=== PATIENT | female | born 1945 | race Caucasian/White ===

== ENCOUNTER 2020-09-17 10:58 | Observation (INO) | payer MEDICARE, OTHER ==
[~2020-09-17] VITALS: Ht 170.2 cm; Wt 105.6 kg
[2020-09-17] MEDS ORDERED: ASPIRIN 81 MG CHEW (CHILDREN'S ASA) PO ONE (11:15)
[2020-09-17 11:22] LABS: BASOPHILS # (AUTO) 0.1 10^3/uL (0.0-0.1); BASOPHILS % (AUTO) 1 % (0-10); EOSINOPHILS # (AUTO) 0.2 10^3/uL (0.0-0.3); EOSINOPHILS % (AUTO) 1 % (0-10); HEMATOCRIT 41 % (35-52); HEMOGLOBIN 13.3 g/dL (11.5-16.0); LYMPHOCYTES # (AUTO) 1.5 10^3/uL (1.0-4.0); LYMPHOCYTES % (AUTO) 11 % (12-44); MEAN CORPUSCULAR HEMOGLOBIN 30 pg (25-34); MEAN CORPUSCULAR HGB CONC 32 g/dL (32-36); MEAN CORPUSCULAR VOLUME 94 fL (80-99); MEAN PLATELET VOLUME 11.2 fL (9.0-12.2); MONOCYTES # (AUTO) 0.5 10^3/uL (0.0-1.0); MONOCYTES % (AUTO) 4 % (0-12); NEUTROPHILS % (AUTO) 83 % (42-75); PLATELET COUNT 230 10^3/uL (130-400); WHITE BLOOD COUNT 13.3 10^3/uL (4.3-11.0)
--- NOTE | 2020-09-17 11:25 | ED Respiratory ---
General Chief Complaint: Respiratory Problems Stated Complaint: CP,SOB Source: patient Exam Limitations: no limitations History of Present Illness Date Seen by Provider: September 17, 2020 Time Seen by Provider: 11:00 Initial Comments Patient presents ER by private conveyance from home with chief complaint shortness of air no chest pain. He has a history of heart failure with EF of 20% known to Dr. De Jesus and Dr. Pat for primary care. She denies history of COPD. She is oxygen dependent typically at 4 L by nasal cannula. She is not having any fevers chills cough. She does not weigh herself daily. She does not smoke. No known history of coronary disease. She had a heart catheterization a few years ago which was unremarkable she says. Allergies and Home Medications Allergies Coded Allergies: No Known Drug Allergies (Unverified , 09/17/20) Patient Home Medication List Home Medication List Reviewed: Yes Review of Systems Review of Systems Constitutional: No chills, No diaphoresis EENTM: No ear discharge, No ear pain Respiratory: No cough; short of breath (Worse with exertion) Cardiovascular: No chest pain, No Hx of Intervention, No palpitations, No syncope, No vascular heart diseas Gastrointestinal: No abdominal pain, No nausea, No vomiting Genitourinary: No discharge, No dysuria Musculoskeletal: No back pain, No joint pain All Other Systems Reviewed Negative Unless Noted: Yes Past Jepjabb-Stfjmm-Lbmwha Hx Patient Social History Alcohol Use: Denies Use Smoking Status: Never a Smoker 2nd Hand Smoke Exposure: No Recent Hopitalizations: No Past Medical History Surgeries: Yes (HEART CATH) Gallbladder, Joint Replacement Respiratory: No Cardiac: Yes (CHF, LOW EJECTION FRACTION) Neurological: No Genitourinary: No Gastrointestinal: No Musculoskeletal: No Endocrine: Yes Diabetes, Non-Insulin dep HEENT: No Cancer: No Psychosocial: No Integumentary: No Blood Disorders: No Physical Exam Vital Signs - First Documented 09/17/20 09/17/20 11:05 11:14 Temp 35.9 Pulse 94 Resp 24 B/P (MAP) 176/114 (134) Pulse Ox 93 O2 Delivery Non Rebreather O2 Flow Rate 8.00 Capillary Refill : Height: '" Weight: lbs. oz. kg; BMI Method: General Appearance: moderate distress, obese Eyes: Bilateral Eye Normal Inspection, Bilateral Eye PERRL, Bilateral Eye EOMI HEENT: PERRL/EOMI, normal ENT inspection, pharynx normal Neck: full range of motion, supple, normal inspection Respiratory: lungs clear, respiratory distress, decreased breath sounds, accessory muscle use, other (Breathless, struggling to get more than 1-2 words out and reply) Cardiovascular: normal peripheral pulses, regular rate, rhythm Neurologic/Psychiatric: alert, oriented x 3 Skin: normal color, warm/dry Progress/Results/Core Measures Suspected Sepsis SIRS Temperature: Pulse: Respiratory Rate: Laboratory Tests 09/17/20 11:08: White Blood Count 13.3H Blood Pressure / Mean: Laboratory Tests 09/17/20 11:08: Creatinine 0.72, Platelet Count 230, Total Bilirubin 2.0H Results/Orders Lab Results Laboratory Tests Test 09/17/20 11:08 09/17/20 11:54 Range/Units White Blood Count 13.3 H 4.3-11.0 10^3/uL Red Blood Count 4.37 3.80-5.11 10^6/uL Hemoglobin 13.3 11.5-16.0 g/dL Hematocrit 41 35-52 % Mean Corpuscular Volume 94 80-99 fL Mean Corpuscular Hemoglobin 30 25-34 pg Mean Corpuscular Hemoglobin Concent 32 32-36 g/dL Red Cell Distribution Width 14.0 10.0-14.5 % Platelet Count 230 130-400 10^3/uL Mean Platelet Volume 11.2 9.0-12.2 fL Immature Granulocyte % (Auto) 0 % Neutrophils (%) (Auto) 83 H 42-75 % Lymphocytes (%) (Auto) 11 L 12-44 % Monocytes (%) (Auto) 4 0-12 % Eosinophils (%) (Auto) 1 0-10 % Basophils (%) (Auto) 1 0-10 % Neutrophils # (Auto) 11.0 H 1.8-7.8 10^3/uL Lymphocytes # (Auto) 1.5 1.0-4.0 10^3/uL Monocytes # (Auto) 0.5 0.0-1.0 10^3/uL Eosinophils # (Auto) 0.2 0.0-0.3 10^3/uL Basophils # (Auto) 0.1 0.0-0.1 10^3/uL Immature Granulocyte # (Auto) 0.1 0.0-0.1 10^3/uL D-Dimer 1.31 H 0.00-0.49 UG/ML Sodium Level 142 135-145 MMOL/L Potassium Level 4.3 3.6-5.0 MMOL/L Chloride Level 107 98-107 MMOL/L Carbon Dioxide Level 20 L 21-32 MMOL/L Anion Gap 15 H 5-14 MMOL/L Blood Urea Nitrogen 17 7-18 MG/DL Creatinine 0.72 0.60-1.30 MG/DL Estimat Glomerular Filtration Rate > 60 BUN/Creatinine Ratio 24 Glucose Level 230 H 70-105 MG/DL Calcium Level 9.5 8.5-10.1 MG/DL Corrected Calcium 9.3 8.5-10.1 MG/DL Magnesium Level 2.1 1.6-2.4 MG/DL Total Bilirubin 2.0 H 0.1-1.0 MG/DL Aspartate Amino Transf (AST/SGOT) 46 H 5-34 U/L Alanine Aminotransferase (ALT/SGPT) 44 0-55 U/L Alkaline Phosphatase 58 40-136 U/L Myoglobin 49.4 10.0-92.0 NG/ML Troponin I < 0.028 <0.028 NG/ML B-Type Natriuretic Peptide 688.4 H <100.0 PG/ML Total Protein 7.4 6.4-8.2 GM/DL Albumin 4.2 3.2-4.5 GM/DL Blood Gas Puncture Site RT RAD Blood Gas Patient Temperature 35.9 Arterial Blood pH 7.38 7.37-7.43 Arterial Blood Partial Pressure CO2 36 35-45 MMHG Arterial Blood Partial Pressure O2 69 L 79-93 MMHG Arterial Blood HCO3 21 L 23-27 MMOL/L Arterial Blood Total CO2 22.1 21.0-31.0 MMOL/L Arterial Blood Oxygen Saturation 94 94-100 % Arterial Blood Base Excess -3.5 L -2.5-2.5 MMOL/L Cruz Test YES-POS Blood Gas Ventilator Setting NO Blood Gas Inspired Oxygen 8 L My Orders Orders - DUNCAN AGEE Continuous Ekg Monitoring (09/17/20 11:04) Ekg Tracing (09/17/20 11:04) Cbc With Automated Diff (09/17/20 11:14) Magnesium (09/17/20 11:14) Chest 1 View, Ap/Pa Only (09/17/20 11:14) Comprehensive Metabolic Panel (09/17/20 11:14) Myoglobin Serum (09/17/20 11:14) O2 (09/17/20 11:14) Lipid Panel (09/18/20 06:00) Ed Iv/Invasive Line Start (09/17/20 11:14) BNP (09/17/20 11:14) Fibrin Degradation Products (09/17/20 11:14) Troponin I (09/17/20 11:14) Aspirin Chewable Tablet (Baby Aspirin Ch (09/17/20 11:15) Arterial Blood Draw (09/17/20 ) Arterial Blood Gas (09/17/20 11:54) Furosemide Injection (Lasix Injection) (09/17/20 12:30) Medications Given in ED Current Medications Medications Dose Ordered Sig/José Miguel Route Start Time Stop Time Status Last Admin Dose Admin Aspirin 324 mg ONCE ONCE PO 09/17/20 11:15 09/17/20 11:16 DC 09/17/20 11:27 324 MG Vital Signs/I&O 09/17/20 09/17/20 09/17/20 11:05 11:14 12:01 Temp 35.9 Pulse 94 88 Resp 24 26 B/P (MAP) 176/114 (134) Pulse Ox 93 93 97 O2 Delivery Non Rebreather Non Rebreather O2 Flow Rate 8.00 8.00 50.00 Capillary Refill : Progress Note : Time: 11:24 Progress Note Patient is very short of breath. Some positive pressure ventilation from Vapotherm or CPAP mask may be helpful. We have her on 6 L by oxygen mask and are getting a good oxygen saturation in the mid 90s although she is still tachypneic. If she does not improve will switch to ventilation. Suspect heart failure, less likely pneumonia since she is not having fever or cough. She does have some edema in her legs 1+ pitting. We will get some labs and a chest x-r ay. ECG Initial ECG Impression Date: September 17, 2020 Initial ECG Impression Time: 11:05 Initial ECG Rate: 100 Initial ECG Rhythm: S.Tach Initial ECG Intervals: QT (614) Initial ECG Impression: Nonspecific Changes Initial ECG Comparisson: No Previous ECG Available Comment Sinus rhythm 90-100 roughly with no clinically relevant ST changes. Lots of movement artifact. Diagnostic Imaging Diagonstic Imaging: Xray Plain Films/CT/US/NM/MRI: chest Comments [facility]. [place], [place] NAME: NIKI RODRIGUES [facility] REC#: [id number] PT STATUS: REG ER : 1945 PHYSICIAN: DUNCAN AGEE MD ADMIT DATE: 09/17/20/ER Draft Date of Exam:09/17/20 CHEST 1 VIEW, AP/PA ONLY INDICATION: Chest pain and shortness of air. TIME OF EXAM: 11:35 AM No prior studies are available for comparison. FINDINGS: The heart is enlarged. There is central congestion. There are some basilar interstitial changes and findings are likely owing to congestive failure. No significant effusion or pneumothorax is seen. IMPRESSION: Findings suggestive of congestive failure. Dictated on workstation # [id number] Dict: 09/17/20 1148 Trans: 09/17/20 1150 [id number] Interpreted by: JACOB AYON MD Electronically signed by: Reviewed: Reviewed by Me Departure Communication (Admissions) Time/Spoke to Admitting Phy: 12:15 Discussed the case with Dr. Hamilton and he agrees to observe the patient in the ICU on CPAP with Lasix. Impression Primary Impression: Acute on chronic congestive heart failure Qualified Codes: I50.9 - Heart failure, unspecified Additional Impression: Acute on chronic respiratory failure with hypoxemia Disposition: ADMITTED INPATIENT Condition: Stable Admissions Decision to Admit Reason: Admit from ER (General) Decision to Admit/Date: September 17, 2020 Time/Decision to Admit Time: 11:30 DUNCAN AGEE September 17, 2020 11:25
[2020-09-17 11:29] LABS: ALBUMIN 4.2 GM/DL (3.2-4.5); CHLORIDE 107 MMOL/L (98-107); POTASSIUM 4.3 MMOL/L (3.6-5.0); SODIUM 142 MMOL/L (135-145)
[2020-09-17 11:30] LABS: CALCIUM 9.5 MG/DL (8.5-10.1)
[2020-09-17 11:31] LABS: GLUCOSE 230 MG/DL (70-105); TOTAL PROTEIN 7.4 GM/DL (6.4-8.2)
[2020-09-17 11:32] LABS: CARBON DIOXIDE 20 MMOL/L (21-32)
[2020-09-17 11:35] LABS: ALKALINE PHOSPHATASE 58 U/L (40-136); CREATININE SERUM 0.72 MG/DL (0.60-1.30); GFR ESTIMATED > 60
[2020-09-17 11:36] LABS: BUN/CREATININE RATIO 24
[2020-09-17 11:38] LABS: ALANINE AMINOTRANSFERASE 44 U/L (0-55); MAGNESIUM 2.1 MG/DL (1.6-2.4)
--- NOTE | 2020-09-17 11:50 | Diagnostic Imaging Report ---
INDICATION: Chest pain and shortness of air. TIME OF EXAM: 11:35 AM No prior studies are available for comparison. FINDINGS: The heart is enlarged. There is central congestion. There are some basilar interstitial changes and findings are likely owing to congestive failure. No significant effusion or pneumothorax is seen. IMPRESSION: Findings suggestive of congestive failure. Dictated by: Dictated on workstation # [id number]
[2020-09-17 12:00] LABS: ABG BASE EXCESS -3.5 MMOL/L (-2.5-2.5); ABG OXYGEN SATURATION 94 % (94-100); ABG PCO2 36 MMHG (35-45); ABG PH 7.38 (7.37-7.43); ABG PO2 69 MMHG (79-93); ABG TCO2 22.1 MMOL/L (21.0-31.0); ALLENS TEST YES-POS; INSPIRED O2 8 L; PATIENT TEMP 35.9; VENTILATOR NO
[2020-09-17 12:01] VITALS: BP 176/114
[2020-09-17] MEDS ORDERED: FUROSEMIDE 40 MG/4 ML INJ (LASIX) IVP ONE (12:30)
[2020-09-17] MEDS ORDERED: CATHETER FLUSH 10 ML SYR IV PRN (13:30)
[2020-09-17 13:34] LABS: BASOPHILS # (AUTO) 0.1 10^3/uL (0.0-0.1); BASOPHILS % (AUTO) 1 % (0-10); EOSINOPHILS # (AUTO) 0.1 10^3/uL (0.0-0.3); EOSINOPHILS % (AUTO) 1 % (0-10); HEMATOCRIT 38 % (35-52); HEMOGLOBIN 12.3 g/dL (11.5-16.0); LYMPHOCYTES # (AUTO) 0.8 10^3/uL (1.0-4.0); LYMPHOCYTES % (AUTO) 7 % (12-44); MEAN CORPUSCULAR HEMOGLOBIN 30 pg (25-34); MEAN CORPUSCULAR HGB CONC 33 g/dL (32-36); MEAN CORPUSCULAR VOLUME 94 fL (80-99); MEAN PLATELET VOLUME 11.1 fL (9.0-12.2); MONOCYTES # (AUTO) 0.3 10^3/uL (0.0-1.0); MONOCYTES % (AUTO) 3 % (0-12); NEUTROPHILS # (AUTO) 10.6 10^3/uL (1.8-7.8); NEUTROPHILS % (AUTO) 89 % (42-75); PLATELET COUNT 191 10^3/uL (130-400); WHITE BLOOD COUNT 11.9 10^3/uL (4.3-11.0)
[2020-09-17 13:50] LABS: EOSINOPHILS % (MANUAL) 1 %; LYMPHOCYTES % (MANUAL) 10 %; MONOCYTES % (MANUAL) 2 %; NEUTROPHILS % (MANUAL) 87 %; RBC MORPH NORMAL
[2020-09-17] MEDS ORDERED: ENOXAPARIN 40 MG/0.4 ML (LOVENOX) SYR SC SCH (14:00)
[2020-09-17] MEDS: CATHETER FLUSH 10 ML SYR IV SCH ×2 (14:09→22:01)
[2020-09-17 14:35] VITALS: BP 167/100
[2020-09-17] MEDS ORDERED: RT-ALBUTEROL/IPRATROPIUM 3 ML (DUONEB) VIAL INH PRN (14:45)
[2020-09-17] MEDS ORDERED: HALOPERIDOL 5 MG/ML (HALDOL) VIAL IV NR (15:00)
[2020-09-17] MEDS ORDERED: hydrALAZINE (APESOLINE) 20 MG/ML VIAL IV PRN (15:00)
[2020-09-17] MEDS: inSUlin ASPART (NovoLOG) 1 UNIT/0.01 ML (CHARGE PER UNIT) SC SCH ×2 (16:09→22:01)
[2020-09-17] MEDS: FUROSEMIDE 40 MG/4 ML INJ (LASIX) IV SCH (17:18)
[2020-09-17] MEDS ORDERED: METF-397 PO (18:14)
[2020-09-17] MEDS ORDERED: TRAZ-227 PO (18:14)
[2020-09-17] MEDS ORDERED: METO50TA7 PO (18:14)
[2020-09-17] MEDS ORDERED: GLIP10TA13 PO (18:14)
[2020-09-17] MEDS ORDERED: MELO15TA39 PO (18:14)
[2020-09-17] MEDS ORDERED: GABA-490 PO (18:14)
[2020-09-17] MEDS ORDERED: FURO20TA4 PO (18:14)
[2020-09-17] MEDS ORDERED: TRAM50TA3 PO (18:14)
[2020-09-17] MEDS ORDERED: BUPR-168 PO (18:14)
[2020-09-17] MEDS ORDERED: VENL150C98 PO (18:14)
[2020-09-17] MEDS ORDERED: polyethylene glycoL POWDER 17 GM (MIRALAX) PACK PO PRN (20:45)
[2020-09-17] MEDS ORDERED: ONDANSETRON 4 MG (ZOFRAN) ORAL DISSOLVE TAB PO PRN (20:45)
[2020-09-17] MEDS ORDERED: ANTACID SUSP 30 ML UDC (MYLANTA) PO PRN (20:45)
[2020-09-17] MEDS ORDERED: MILK OF MAGNESIA 400 MG/5 ML 30 ML UDC PO PRN (20:45)
[2020-09-17] MEDS ORDERED: MELATONIN 3 MG TABLET PO PRN (20:45)
[2020-09-17] MEDS ORDERED: ACETAMINOPHEN 325 MG TABLET PO PRN (20:45)
[2020-09-17] MEDS ORDERED: ONDANSETRON 4 MG/2 ML (SDV) Z0FRAN IV PRN (20:45)
[2020-09-17] MEDS ORDERED: traZODone 100 MG (DESYREL) TAB PO SCH (21:00)
[2020-09-17] MEDS: GABAPENTIN 300 MG (NEURONTIN) CAP PO SCH (22:01)
[2020-09-18 03:27] LABS: ALBUMIN 3.9 GM/DL (3.2-4.5); CHLORIDE 107 MMOL/L (98-107); POTASSIUM 3.4 MMOL/L (3.6-5.0); SODIUM 143 MMOL/L (135-145)
[2020-09-18 03:28] LABS: CALCIUM 9.2 MG/DL (8.5-10.1)
[2020-09-18 03:29] LABS: TRIGLYCERIDES 127 MG/DL (<150); VLDL CHOLESTEROL 25 MG/DL (5-40)
[2020-09-18 03:30] LABS: GLUCOSE 145 MG/DL (70-105); TOTAL PROTEIN 6.7 GM/DL (6.4-8.2)
[2020-09-18 03:31] LABS: BILIRUBIN,TOTAL 1.6 MG/DL (0.1-1.0); CARBON DIOXIDE 24 MMOL/L (21-32)
[2020-09-18 03:33] LABS: ALKALINE PHOSPHATASE 53 U/L (40-136); CREATININE SERUM 0.66 MG/DL (0.60-1.30); GFR ESTIMATED > 60
[2020-09-18 03:34] LABS: CHOLESTEROL 166 MG/DL (< 200)
[2020-09-18 03:35] LABS: BUN/CREATININE RATIO 23; HDL CHOLESTEROL 40 MG/DL (40-60)
[2020-09-18 03:36] LABS: ALANINE AMINOTRANSFERASE 37 U/L (0-55)
--- NOTE | 2020-09-18 04:43 | Pulmonary Consultation ---
History of Present Illness History of Present Illness Date Seen by Provider: September 18, 2020 Time Seen by Provider: 04:39 Date of Admission Allergies and Home Medications Allergies Coded Allergies: No Known Drug Allergies (Unverified , 09/17/20) Home Medications Bupropion HCl 75 Mg Tablet, 75 MG PO DAILY, (Reported) Furosemide 20 Mg Tablet, 20 MG PO DAILY, (Reported) Gabapentin 400 Mg Capsule, 300 MG PO BID, (Reported) Glipizide 10 Mg Tablet, 10 MG PO BID, (Reported) Meloxicam 15 Mg Tablet, 15 MG PO DAILY, (Reported) Metformin HCl 500 Mg Tablet, 20 MG PO DAILY, (Reported) Metoprolol Succinate 50 Mg Tab.er.24h, 50 MG PO DAILY, (Reported) Tramadol HCl 50 Mg Tablet, 50 MG PO PRN, (Reported) Trazodone HCl 100 Mg Tablet, 100 MG PO HS, (Reported) Venlafaxine HCl 150 Mg Cap.er.24h, 150 MG PO DAILY, (Reported) Past Bkxwjlg-Ebqkfa-Gayufh Hx Patient Social History Alcohol Use: Denies Use Smoking Status: Never a Smoker 2nd Hand Smoke Exposure: No Recent Infectious Disease Expo: No Recent Hopitalizations: No Have you traveled recently?: No Alcohol Use?: Yes Immunizations Up To Date Date of Influenza Vaccine: Feb 18, 2020 Past Medical History Surgeries: Yes (HEART CATH) Gallbladder, Joint Replacement Respiratory: No Cardiac: Yes (CHF, LOW EJECTION FRACTION) Neurological: No Genitourinary: No Gastrointestinal: No Musculoskeletal: No Endocrine: Yes Diabetes, Non-Insulin dep HEENT: No Cancer: No Psychosocial: No Integumentary: No Blood Disorders: No Review of Systems Time Seen by Provider: 04:39 Sepsis Event Evaluation Height, Weight, BMI Height: '" Weight: lbs. oz. kg; 36.45 BMI Method: Exam Exam Vital Signs Date Time Temp Pulse Resp B/P (MAP) Pulse Ox O2 Delivery O2 Flow Rate FiO2 09/18/20 03:18 69 16 93 30.00 09/18/20 03:00 67 16 167/97 (120) 94 NIV CPAP 30.00 09/18/20 02:00 66 18 170/99 (122) 93 NIV CPAP 30.00 09/18/20 01:00 70 09/18/20 01:00 68 16 179/99 (125) 92 NIV CPAP 30.00 09/18/20 00:00 72 21 154/96 (115) 95 NIV CPAP 30.00 09/18/20 00:00 92 Nasal Cannula 09/17/20 23:18 NIV CPAP 30.00 09/17/20 23:15 79 16 94 30.00 09/17/20 23:03 93 Nasal Cannula 5.00 09/17/20 23:00 70 23 162/85 (110) 94 Nasal Cannula 3.00 09/17/20 22:00 80 24 166/105 (125) 96 Nasal Cannula 3.00 09/17/20 21:00 76 18 171/104 (126) 95 Nasal Cannula 3.00 09/17/20 20:00 92 Nasal Cannula 09/17/20 20:00 36.4 09/17/20 20:00 79 21 170/96 (120) 94 Nasal Cannula 3.00 09/17/20 19:00 75 16 161/96 (117) 92 Nasal Cannula 3.00 09/17/20 19:00 80 09/17/20 18:00 82 19 184/112 (136) 93 Nasal Cannula 3.00 09/17/20 17:00 68 12 153/112 (126) 92 NIV Bilevel 30.00 09/17/20 16:14 36.2 09/17/20 16:11 94 NIV Bilevel 30 09/17/20 16:00 68 15 157/101 (119) 96 NIV Bilevel 30.00 09/17/20 15:00 68 19 168/105 (126) 94 NIV Bilevel 30.00 09/17/20 14:45 36.8 09/17/20 14:35 35.9 67 95 30 09/17/20 14:00 95 NIV Bilevel 30 09/17/20 14:00 67 17 167/100 (122) 93 NIV Bilevel 30.00 09/17/20 13:04 85 24 93 30.00 09/17/20 13:00 80 09/17/20 13:00 82 23 171/104 (126) 94 NIV Bilevel 30.00 09/17/20 12:39 35.9 86 20 136/90 98 NIV CPAP 09/17/20 12:01 88 26 97 50.00 09/17/20 11:14 35.9 94 24 176/114 (134) 93 Non Rebreather 8.00 09/17/20 11:05 93 Non Rebreather 8.00 I & O 09/18/20 07:00 Intake Total 515 ml Output Total 0 ml Balance 515 ml Height & Weight Height: '" Weight: lbs. oz. kg; 36.45 BMI Method: Capillary Refill: Less Than 3 Seconds Results Lab Laboratory Tests 09/17/20 11:08 09/17/20 13:20 09/18/20 03:00 Assessment/Plan Assessment/Plan Acute on chronic CHF -Continue Lasix -Cardiology following -Check echo -Monitor Acute on chronic respiratory failure -Currently on 4 liters NC -Duoneb Leukocytosis r/o infection -Check UA -Check PCT -monitor ALINA MORGAN DO September 18, 2020 04:43
[2020-09-18] MEDS ORDERED: POTASSIUM CL 10MEQ/50ML IVPB 50 ML IV SCH ×2 (04:45→06:00)
[2020-09-18 04:58] LABS: PHOSPHORUS 3.5 MG/DL (2.3-4.7)
[2020-09-18] MEDS: inSUlin ASPART (NovoLOG) 1 UNIT/0.01 ML (CHARGE PER UNIT) SC SCH ×2 (05:28→12:14)
[2020-09-18] MEDS: MAGNESIUM 1 GM/100 ML IVPB 100 ML IV SCH ×2 (05:55→05:56)
[2020-09-18] MEDS ORDERED: KCL 20 MEQ TAB (K-DUR) PO SCH (06:00)
[2020-09-18] MEDS ORDERED: MAGNESIUM 1 GM/100 ML IVPB 100 ML IV SCH (06:00)
[2020-09-18] MEDS: CATHETER FLUSH 10 ML SYR IV SCH (06:12)
[2020-09-18 06:24] LABS: BILIRUBIN,URINE NEGATIVE (NEGATIVE); CLARITY,URINE CLEAR; COLOR,URINE YELLOW; GLUCOSE, URINE (UA) NEGATIVE (NEGATIVE); KETONES,URINE 1+ (NEGATIVE); LEUKOCYTE ESTERASE ,URINE NEGATIVE (NEGATIVE); NITRITE,URINE NEGATIVE (NEGATIVE); PROTEIN,URINE NEGATIVE (NEGATIVE)
[2020-09-18 06:35] LABS: BACTERIA,URINE NEGATIVE /HPF; WBC,URINE 0-2 /HPF
[2020-09-18] MEDS: FUROSEMIDE 40 MG/4 ML INJ (LASIX) IV SCH (06:48)
[2020-09-18] MEDS ORDERED: KCL 20 MEQ TAB (K-DUR) PO ONE (08:00)
[2020-09-18] MEDS: GABAPENTIN 300 MG (NEURONTIN) CAP PO SCH (08:28)
[2020-09-18] MEDS ORDERED: RT-ALBUTEROL/IPRATROPIUM 3 ML (DUONEB) VIAL INH SCH (09:00)
[2020-09-18] MEDS ORDERED: GABA300C PO ×2 (09:36)
[2020-09-18] MEDS ORDERED: LOSA25TA41 PO (09:36)
[2020-09-18] MEDS ORDERED: SIMV20TA26 PO (09:36)
[2020-09-18] MEDS ORDERED: FURO20TA4 PO (10:48)
[2020-09-18] MEDS ORDERED: POTA10CA43 PO (10:48)
--- NOTE | 2020-09-18 13:43 | Discharge Summary ---
Discharge Summary Hospital Course Problems/Dx: (1) Acute on chronic congestive heart failure Status: Acute Qualifiers: Qualified Codes: I50.23 - Acute on chronic systolic (congestive) heart failure (2) Acute on chronic respiratory failure with hypoxemia Status: Acute Hospital Course Date of Admission: September 17, 2020 at 12:20 Admission Diagnosis : Acute on chronic systolic congestive heart failure Family Physician/Provider: Lora Maynard Physician Date of Discharge: 09/18/20 Discharge Diagnosis: Acute on chronic systolic congestive heart failure Hospital Course: Michelle Grullon is a 75-year-old female with heart failure with reduced ejection fraction, chronic respiratory failure on 4 L continuously, who presented with shortness of breath and was admitted with acute on chronic heart failure. She was treated with CPAP and Lasix and she improved. On the morning of discharge she had returned to her baseline. She was recommended to increase her daily Lasix to 40 mg daily for the next 5 days and then resume 20 mg daily. She was started on supplemental potassium. She was encouraged to weigh herself daily and discuss a heart failure exacerbation plan with her alberene stone setter. She should have repeat labs drawn early next week. She should follow-up with Dr. Cooper within a week. Labs and Pending Lab Test: Laboratory Tests 09/17/20 16:09: Glucometer 148H 09/17/20 20:40: Glucometer 131H 09/18/20 03:00: Sodium Level 143, Potassium Level 3.4L, Chloride Level 107, Carbon Dioxide Level 24, Anion Gap 12, Blood Urea Nitrogen 15, Creatinine 0.66, Estimat Glomerular Filtration Rate > 60, BUN/Creatinine Ratio 23, Glucose Level 145H, Calcium Level 9.2, Corrected Calcium 9.3, Phosphorus Level 3.5, Magnesium Level 2.0, Total Bilirubin 1.6H, Aspartate Amino Transf (AST/SGOT) 27, Alanine Aminotransferase (ALT/SGPT) 37, Alkaline Phosphatase 53, Total Protein 6.7, Albumin 3.9, Triglycerides Level 127, Cholesterol Level 166, LDL Cholesterol Direct 119, VLDL Cholesterol 25, HDL Cholesterol 40, Procalcitonin 0.03 09/18/20 05:51: Urine Color YELLOW, Urine Clarity CLEAR, Urine pH 6.0, Urine Specific [place] 1.025H, Urine Protein NEGATIVE, Urine Glucose (UA) NEGATIVE, Urine Ketones 1+H, Urine Nitrite NEGATIVE, Urine Bilirubin NEGATIVE, Urine Urobilinogen 0.2, Urine Leukocyte Esterase NEGATIVE, Urine RBC (Auto) NEGATIVE, Urine RBC NONE, Urine WBC 0-2, Urine Crystals NONE, Urine Bacteria NEGATIVE, Urine Casts NONE, Urine Mucus NEGATIVE, Urine Culture Indicated NO 09/18/20 12:11: Glucometer 137H Home Meds Active Potassium Chloride 10 Meq Capsule.er 10 Meq PO DAILY 30 Days Furosemide 20 Mg Tablet 40 Mg PO DAILY 5 Days Reported Losartan Potassium 25 Mg Tablet 25 Mg PO BID Neurontin (Gabapentin) 300 Mg Capsule 600 Mg PO HS TAKES 2 (300MG) CAPS Neurontin (Gabapentin) 300 Mg Capsule 300 Mg PO DAILY Simvastatin 20 Mg Tablet 20 Mg PO HS Bupropion HCl 75 Mg Tablet 75 Mg PO BID Tramadol HCl 50 Mg Tablet 50-100 Mg PO QID PRN Venlafaxine HCl ER (Venlafaxine HCl) 150 Mg Cap.er.24h 150 Mg PO DAILY Glipizide 10 Mg Tablet 10 Mg PO BID Trazodone HCl 100 Mg Tablet 100 Mg PO HS Meloxicam 15 Mg Tablet 15 Mg PO DAILY Metoprolol Succinate 50 Mg Tab.er.24h 50 Mg PO DAILY Metformin HCl 500 Mg Tablet 500 Mg PO BID Assessment/Pt Instructions See discharge instructions Discharge Planning: <30 minutes discharge planning Discharge Instructions Discharge Diet: Low Sodium Diet Activity as Tolerated: Yes Discharge Physical Examination Vital Signs Vital Signs Date Time Temp Pulse Resp B/P (MAP) Pulse Ox O2 Delivery O2 Flow Rate FiO2 09/18/20 12:50 69 09/18/20 12:12 96 Nasal Cannula 09/18/20 12:00 158/102 (120) 5.00 09/18/20 11:00 28 09/18/20 08:27 36.6 09/17/20 16:11 30 General Appearance: No Apparent Distress, Obese HEENT: PERRL/EOMI, Pharynx Normal Respiratory: No Respiratory Distress, Crackles (Bibasilar) Cardiovascular: Regular Rate, Rhythm, No Murmur Gastrointestinal: Normal Bowel Sounds, Non Tender, Soft Extremity: Normal Inspection, Non Tender, Pedal Edema Skin: Normal Color, Warm/Dry Neurologic/Psychiatric: Alert, Oriented x3, No Motor/Sensory Deficits, Normal Mood/Affect Allergies: Coded Allergies: No Known Drug Allergies (Unverified , 09/17/20) Copy Copies To 1: JENNA COOPER DO Discharge Summary Date of Admission September 17, 2020 at 12:20 Date of Discharge Discharge Date: September 18, 2020 Discharge Time: 13:40 Admission Diagnosis Acute on chronic congestive heart failure Discharge Diagnosis (1) Acute on chronic congestive heart failure Status: Acute Qualifiers: Qualified Codes: I50.23 - Acute on chronic systolic (congestive) heart failure (2) Acute on chronic respiratory failure with hypoxemia Status: Acute LINDY SANDS MD September 18, 2020 13:43
[2020-09-18] MEDS ORDERED: MICONAZOLE 2% POWDER (DESENEX AF) 90 GM TOP SCH (21:00)
== END 2020-09-18 13:53 | disposition home or self-care (01) ==
LOC: ER 11:01 → ICU 12:20
PROVIDERS: ADMIT Internal Medicine; ATTEND Internal Medicine
DX: I50.23 Acute on chronic systolic (congestive) heart failure (principal); J96.21 Acute and chronic respiratory failure with hypoxia; E11.9 Type 2 diabetes mellitus without complications; D72.829 Elevated white blood cell count, unspecified; Z79.84 Long term (current) use of oral hypoglycemic drugs; Z79.899 Other long term (current) drug therapy
CPT/HCPCS: 36600; 71045; 80053 ×2; 80061; 81000; 82805; 82947 ×2; 83735 ×2; 83874; 83880; 84100; 84145; 84484; 85007; 85025; 85027; 85379; 93005; 94640 ×2; 94660; 96374; 99285; G0378; 36415